=== PATIENT | female | born 1985 | race Hispanic/Latino ===

== ENCOUNTER 2018-04-28 14:44 | Emergency (ER) | payer MEDICAID, SELFPAY ==
[2018-04-28] MEDS ORDERED: Lorazepam 2 MG/ML VIAL ONE (15:30)
--- NOTE | 2018-04-28 16:29 | RAD ---
CHEST ONE VIEW: 04/28/18 HISTORY: Chest pain. COMPARISON: 12/22/16. FINDINGS: Cardiac silhouette and pulmonary vasculature are unremarkable. Subtle ill-defined infiltrate at the r ight base overlies the apex of the right hemidiaphragm. Left lung is clear. No evidence of pneumothor ax. IMPRESSION: Subtle right basilar infiltrate. Clinical correlation regarding other signs and symptoms of right bas ilar pneumonitis is required. Please consider short term radiographic followup upright PA lateral vie ws of the chest when patient can undergo that exam. POS: MARII
== END 2018-04-28 16:35 | disposition home or self-care (01) ==
LOC: ERS 14:44
DX: F41.9 Anxiety disorder, unspecified (principal); R06.02 Shortness of breath
CPT/HCPCS: 71045; 93005; 96372; J2060

== ENCOUNTER 2018-09-06 22:12 | Emergency (ER) | payer MEDICAID, OTHER | END 2018-09-06 22:40 | disposition home or self-care (01) | LOC: ERS 22:12 | DX: J20.9 Acute bronchitis, unspecified (principal) | CPT/HCPCS: 99283 ==

== ENCOUNTER 2018-10-06 13:39 | Outpatient (CLI) | payer OTHER ==
--- NOTE | 2018-10-06 16:00 | ULT ---
THYROID SONOGRAM: 10/06/18 HISTORY: Enlarged thyroid gland. FINDINGS: Right thyroid lobe is 6.3 cm in length. Complex cyst at the lateral margin measures up to 1.5 cm. At the inferior pole, a 1.2 cm nodule is present. Isthmus is 1.4 cm. Left thyroid lobe is 6.6 cm. Near the inferior pole is a complex slightly hyperech oic 2.2 cm mass with a small cystic component. IMPRESSION: Multinodular goiter. POS: MARII
== END 2018-10-06 13:40 | disposition home or self-care (01) ==
LOC: BICULT 13:39
PROVIDERS: ATTEND Specialist
DX: E01.0 Iodine-deficiency related diffuse (endemic) goiter (principal); E04.2 Nontoxic multinodular goiter
CPT/HCPCS: 76536

== ENCOUNTER 2018-11-12 10:26 | Outpatient (CLI) | payer OTHER ==
--- NOTE | 2018-11-12 13:12 | ULT ---
PERCUTANEOUS ULTRASOUND GUIDED LEFT THYROID LOBE FNA AND BIOPSY: INDICATION: Dominant left thyroid nodule: PROCEDURE: Informed consent was obtained. The patient was escorted to the procedural suite and placed into a [place] pine position. The left neck was prepped and draped in the standard sterile fashion and the nodule o f interest within the left thyroid lobe was localized sonographically. After standard sterile preppi ng and draping was performed, topical anesthesia was achieved with buffered 1% Lidocaine. Subsequent ly, 4 separate FNA sampling procedures utilizing 25-gauge needles were performed under real-time sono graphy. Specimens were provided to the pathologist, Dr. Yaniv Paz who deemed the specimens adequat e for interpretation. The needles were subsequently removed. The patient tolerated the procedure we ll without evidence of complication. IMPRESSION: Technically successful ultrasound-guided left thyroid lobe fine needle aspiration/biopsy. Pathology results are pending. POS: MARII
== END 2018-11-12 10:27 | disposition home or self-care (01) ==
LOC: ULT 10:26
PROVIDERS: ATTEND Specialist
DX: E04.1 Nontoxic single thyroid nodule (principal)
CPT/HCPCS: 60100; 76942; 88173

== ENCOUNTER → 2019-08-11 | Emergency (ER) | payer OTHER | LOC: ERS 12:47 | DX: Z53.21 Procedure and treatment not carried out due to patient leaving prior to being seen by health care provider (principal) ==

== ENCOUNTER 2021-03-11 14:13 | Outpatient (CLI) | payer BC | END 2021-03-11 14:14 | disposition home or self-care (01) | LOC: BICRAD 14:13 | PROVIDERS: ATTEND Nurse Practitioner Family | DX: M25.569 Pain in unspecified knee (principal); M67.40 Ganglion, unspecified site ==

== ENCOUNTER 2022-10-04 19:12 | Emergency (ER) | payer BC ==
[2022-10-04 20:10] LABS: #Basophils 0.1 thou/uL (0.0-0.2); #Lymphocytes 3.3 thou/uL (1.20-3.40); #Monocytes 0.6 thou/uL (0.11-0.59); #Neutrophils 5.6 thou/uL (1.40-6.50); %Basophils 0.7 % (0.0-1.0); %Eosinophils 0.1 % (0.0-10.0); %Lymphocytes 34.8 % (21.0-51.0); %Monocytes 5.8 % (0.0-10.0); %Neutrophils 58.6 % (42.0-75.0); Hemoglobin 13.2 g/dL (12.0-16.0); Mean Corpuscular HGB CONC 33.9 g/dL (32.0-36.0); Mean Corpuscular Hemoglobin 26.3 pg (27.0-31.0); Mean Corpuscular Volume 77.8 fl (78.0-98.0); Mean Platelet Volume 8.4 fL (7.4-10.4); Platelet Count 257 10x3/uL (130-400); RBC Distribution Width 12.5 % (11.5-14.5); Red Blood Cell (RBC) Count 5.01 mill/uL (4.20-5.40); White Blood Cell (WBC) Count 9.6 10x3/uL (4.8-10.8)
[2022-10-04 20:36] LABS: ALT (SGPT) 35 U/L (8-55); AST (SGOT) 21 U/L (5-34); Albumin 4.5 g/dL (3.5-5.0); Alkaline Phosphatase 102 U/L (40-110); Anion Gap 14 mmol/L (10-20); BUN (Urea Nitrogen) 11 mg/dL (7.0-18.7); Bilirubin, Total 0.2 mg/dL (0.2-1.2); Calc. Creatinine Clearance 0 mL/min (70-130); Calcium 9.8 mg/dL (7.8-10.44); Carbon Dioxide 26 mmol/L (22-29); Chloride 104 mmol/L (98-107); Estimated GFR 107; Globulin 3.6 g/dL (2.4-3.5); Glucose 105 mg/dL (70-105); Potassium 3.8 mmol/L (3.5-5.1); Protein, Total 8.1 g/dL (6.0-8.3); Sodium 140 mmol/L (136-145)
== END 2022-10-04 22:04 | disposition home or self-care (01) ==
LOC: ERS 19:12
DX: R07.9 Chest pain, unspecified (principal); F43.0 Acute stress reaction; I10 Essential (primary) hypertension; Z79.899 Other long term (current) drug therapy
CPT/HCPCS: 36415; 80053; 84484; 85025; 93005